=== PATIENT | male | born 1965 | race Caucasian/White ===

== ENCOUNTER 2023-08-10 03:15 | Emergency (ER) | payer OTHER ==
[~2023-08-10] VITALS: Ht 175.3 cm; Wt 68.0 kg
[2023-08-10 03:27] VITALS: BP 94/79; PULSE 95; RESP 16; TEMP 97.4; O2SAT 97
[2023-08-10] MEDS: ACETAMINOPHEN EXTRA STRENGTH 500 MG TAB PO ONE (04:14)
[2023-08-10] MEDS: SULFAMETH/TRIMETH DS 800/160MG 1 TAB PO ONE (04:14)
[2023-08-10] MEDS ORDERED: SULF-59 PO (04:23)
[2023-08-10] MEDS ORDERED: BACTO TP (04:23)
[2023-08-10 04:39] VITALS: BP 112/75; PULSE 90; RESP 16; TEMP 97.4; O2SAT 98
== END 2023-08-10 04:39 | disposition home or self-care (01) ==
LOC: MED 03:15
DX: S01.80XA Unspecified open wound of other part of head, initial encounter (principal); S11.90XA Unspecified open wound of unspecified part of neck, initial encounter; L08.89 Other specified local infections of the skin and subcutaneous tissue; R21 Rash and other nonspecific skin eruption; F15.90 Other stimulant use, unspecified, uncomplicated; Z98.890 Other specified postprocedural states; Z79.899 Other long term (current) drug therapy; X58.XXXA Exposure to other specified factors, initial encounter; Y92.89 Other specified places as the place of occurrence of the external cause; Y93.89 Activity, other specified; Y99.8 Other external cause status
CPT/HCPCS: 99283